=== PATIENT | female | born 1950 | race Caucasian/White ===

== ENCOUNTER 2018-01-16 10:33 | Outpatient (RCR) | payer MEDICARE ==
[~2018-01-16 10:33] MED LIST: Z.0.AMLODIPINE BES2. PO; Z.0.ATENOLOL25 MG PO; Z.0.OMEPRAZOLE40 MG PO
== END 2018-01-18 ==
LOC: PT 10:33
PROVIDERS: ATTEND Orthopaedic Surgery Sports Medicine
DX: M25.512 Pain in left shoulder (principal); M25.612 Stiffness of left shoulder, not elsewhere classified; M62.81 Muscle weakness (generalized)
CPT/HCPCS: 97010 ×3; 97110 ×3; 97139; 97140 ×3; 97162; G8984; G8985

== ENCOUNTER 2018-02-13 10:53 | Outpatient (RCR) | payer MEDICARE | END 2018-02-17 | LOC: PT 10:53 | PROVIDERS: ATTEND Orthopaedic Surgery Sports Medicine | DX: M25.551 Pain in right hip (principal) | CPT/HCPCS: 97010 ×6; 97110 ×8; 97139; 97140 ×5; G8984; G8985 ==

== ENCOUNTER → 2018-03-20 | Outpatient (RCR) | payer MEDICARE | LOC: PT 02-18 10:57 | PROVIDERS: ATTEND Orthopaedic Surgery Sports Medicine | DX: M25.512 Pain in left shoulder (principal); M25.612 Stiffness of left shoulder, not elsewhere classified; M62.81 Muscle weakness (generalized) | CPT/HCPCS: 97010 ×6; 97110 ×9; 97139; 97140 ×3; G8984; G8985 ==

== ENCOUNTER 2018-04-03 10:59 | Outpatient (RCR) | payer MEDICARE | END 2018-04-19 | LOC: PT 10:59 | PROVIDERS: ATTEND Orthopaedic Surgery Sports Medicine | DX: M25.512 Pain in left shoulder (principal); M25.612 Stiffness of left shoulder, not elsewhere classified; M62.81 Muscle weakness (generalized) | CPT/HCPCS: 97010; 97110 ×4; 97140; G8984; G8985 ==

== ENCOUNTER 2018-05-08 09:00 | Outpatient (RCR) | payer MEDICARE | END 2018-05-20 | LOC: PT 09:00 | PROVIDERS: ATTEND Orthopaedic Surgery Sports Medicine | DX: M25.551 Pain in right hip (principal); M25.512 Pain in left shoulder; M25.612 Stiffness of left shoulder, not elsewhere classified; M62.81 Muscle weakness (generalized) | CPT/HCPCS: 97010; 97110 ×3; 97139; G8984; G8985 ==

== ENCOUNTER 2018-11-19 13:00 | Outpatient (RCR) | payer MEDICARE | END 2018-11-20 | LOC: PT 13:00 | PROVIDERS: ATTEND Orthopaedic Surgery Adult Reconstructive Orthopaedic Surgery | DX: Z96.641 Presence of right artificial hip joint (principal); M25.551 Pain in right hip; M62.81 Muscle weakness (generalized); R26.2 Difficulty in walking, not elsewhere classified | CPT/HCPCS: 97110 ×10; 97139; 97140; 97161; G8978; G8979 ==

== ENCOUNTER 2018-12-17 13:00 | Outpatient (RCR) | payer MEDICARE | END 2018-12-18 | LOC: PT 13:00 | PROVIDERS: ATTEND Orthopaedic Surgery Adult Reconstructive Orthopaedic Surgery | DX: Z96.641 Presence of right artificial hip joint (principal); M25.551 Pain in right hip; R26.2 Difficulty in walking, not elsewhere classified; M62.81 Muscle weakness (generalized) ==

== ENCOUNTER 2019-01-15 13:00 | Outpatient (RCR) | payer MEDICARE | END 2019-01-18 | LOC: PT 13:00 | PROVIDERS: ATTEND Orthopaedic Surgery Adult Reconstructive Orthopaedic Surgery | DX: Z96.641 Presence of right artificial hip joint (principal); M25.551 Pain in right hip; M62.81 Muscle weakness (generalized); R26.2 Difficulty in walking, not elsewhere classified | CPT/HCPCS: 97139 ==

== ENCOUNTER 2019-02-05 12:56 | Outpatient (RCR) | payer MEDICARE | END 2019-02-17 | LOC: PT 12:56 | PROVIDERS: ATTEND Orthopaedic Surgery Adult Reconstructive Orthopaedic Surgery | DX: Z96.641 Presence of right artificial hip joint (principal); M25.551 Pain in right hip; R26.2 Difficulty in walking, not elsewhere classified; M62.81 Muscle weakness (generalized) ==

== ENCOUNTER → 2020-04-19 | Outpatient (RCR) | payer MEDICARE | LOC: PT 04-14 09:10 | PROVIDERS: ATTEND Orthopaedic Surgery Sports Medicine | DX: M75.01 Adhesive capsulitis of right shoulder (principal) ==

== ENCOUNTER → 2020-05-20 | Outpatient (RCR) | payer MEDICARE | LOC: PT 04-21 13:02 | PROVIDERS: ATTEND Orthopaedic Surgery Sports Medicine | DX: M75.01 Adhesive capsulitis of right shoulder (principal); M25.511 Pain in right shoulder; M62.81 Muscle weakness (generalized) | CPT/HCPCS: 97139 ==

== ENCOUNTER 2020-05-31 13:00 | Outpatient (RCR) | payer MEDICARE | END 2020-06-20 | LOC: PT 13:00 | PROVIDERS: ATTEND Orthopaedic Surgery Sports Medicine | DX: M75.01 Adhesive capsulitis of right shoulder (principal) | CPT/HCPCS: 97139 ==

== ENCOUNTER 2021-07-01 21:31 | Emergency (ER) | payer MEDICARE ==
[~2021-07-01] VITALS: Ht 162.6 cm; Wt 73.0 kg
== END 2021-07-01 22:41 | disposition home or self-care (01) ==
LOC: ER 21:44
DX: K08.89 Other specified disorders of teeth and supporting structures (principal); K02.9 Dental caries, unspecified; I10 Essential (primary) hypertension; Z95.1 Presence of aortocoronary bypass graft; Z96.641 Presence of right artificial hip joint
CPT/HCPCS: 99282

== ENCOUNTER 2021-08-04 15:21 | Emergency (ER) | payer MEDICARE ==
[~2021-08-04] VITALS: Ht 162.6 cm; Wt 63.5 kg
[2021-08-04] MEDS ORDERED: SODIUM CHLORIDE 0.9% 1000ML 1,000 ML IV STA (15:49)
[2021-08-04 16:02] LABS: BASOPHILS % 0.3 % (0.0-1.0); EOSINOPHILS % 0.1 % (0.0-6.0); HEMATOCRIT 41.9 % (34.2-44.1); HEMOGLOBIN 13.7 g/dL (12.0-16.0); LYMPHOCYTES # (AUTO) 0.8 (1.0-3.2); LYMPHOCYTES % 6.8 % (18.0-39.1); MEAN CORPUSCULAR HGB CONC 32.7 g/dL (31-35); MEAN CORPUSCULAR VOLUME 91.7 fL (81-99); MONOCYTES # (AUTO) 0.5 (0.2-0.8); MONOCYTES % 4.2 % (4.4-11.3); NEUTROPHILS # (AUTO) 9.9 (2.1-6.9); NEUTROPHILS % 88.1 % (38.7-80.0); PLATELET COUNT 260 x10e3/uL (140-360); RED BLOOD COUNT 4.57 x10e6/uL (3.6-5.1); RED CELL DISTRIBUTION WIDTH 13.6 % (11.7-14.4)
[2021-08-04 16:11] LABS: INR 0.99; PROTHROMBIN TIME 13.5 seconds (11.9-14.5)
[2021-08-04 16:12] LABS: PARTIAL THROMBOPLASTIN TIME 26.4 seconds (23.8-35.5)
[2021-08-04 16:19] LABS: ALBUMIN/GLOBULIN RATIO 1.1 (0.8-2.0); ANION GAP 17.6 mmol/L (8-16); CALCIUM 9.3 mg/dL (8.4-10.2); CREATININE, SERUM 1.11 mg/dL (0.57-1.11); POTASSIUM 3.6 mmol/L (3.5-5.1)
[2021-08-04 16:26] LABS: CREATINE KINASE MB 2.1 ng/mL (0-5.0)
[2021-08-04] MEDS ORDERED: MEDROL4 MG PO (16:48)
[2021-08-04] MEDS ORDERED: PEPCID20 MG PO (16:48)
[2021-08-04] MEDS ORDERED: BENADRYL25 M1 PO (16:48)
[2021-08-04] MEDS ORDERED: EPIPEN JR0.15 MG/01 IM (16:49)
[2021-08-04 16:51] VITALS: BP 115/59
== END 2021-08-04 17:16 | disposition home or self-care (01) ==
LOC: EDSEX 15:21 → ER 15:50
DX: R21 Rash and other nonspecific skin eruption (principal); T41.295A Adverse effect of other general anesthetics, initial encounter; I10 Essential (primary) hypertension; R94.31 Abnormal electrocardiogram [ECG] [EKG]; Z95.1 Presence of aortocoronary bypass graft; Z96.641 Presence of right artificial hip joint
CPT/HCPCS: 36415; 71045; 80053; 82550; 82553; 83880; 84484; 85025; 85610; 85730; 93005; 99284; J7030

== ENCOUNTER 2022-01-16 11:24 | Outpatient (RCR) | payer MEDICARE ==
[~2022-01-16 11:24] MED LIST changes: +BENADRYL25 M1 PO; +EPIPEN JR0.15 MG/01 IM; +MEDROL4 MG PO; +PEPCID20 MG PO
== END 2022-01-18 ==
LOC: PT 11:24
PROVIDERS: ATTEND Orthopaedic Surgery Sports Medicine
DX: M75.82 Other shoulder lesions, left shoulder (principal); M25.512 Pain in left shoulder; M25.612 Stiffness of left shoulder, not elsewhere classified

== ENCOUNTER 2022-02-16 13:00 | Outpatient (RCR) | payer MEDICARE | END 2022-02-17 | LOC: PT 13:00 | PROVIDERS: ATTEND Orthopaedic Surgery Sports Medicine | DX: M75.82 Other shoulder lesions, left shoulder (principal); M25.512 Pain in left shoulder; M25.612 Stiffness of left shoulder, not elsewhere classified | CPT/HCPCS: 97139 ==

== ENCOUNTER 2022-03-09 11:00 | Outpatient (RCR) | payer MEDICARE | END 2022-03-20 | LOC: PT 11:00 | PROVIDERS: ATTEND Orthopaedic Surgery Sports Medicine | DX: M75.52 Bursitis of left shoulder (principal); M25.512 Pain in left shoulder; M25.612 Stiffness of left shoulder, not elsewhere classified | CPT/HCPCS: 97139 ==

== ENCOUNTER 2022-05-18 11:00 | Outpatient (RCR) | payer MEDICARE | END 2022-05-20 | LOC: PT 11:00 | PROVIDERS: ATTEND Specialist | DX: S30.0XXA Contusion of lower back and pelvis, initial encounter (principal) ==

== ENCOUNTER 2022-06-14 11:00 | Outpatient (RCR) | payer MEDICARE | END 2022-06-20 | LOC: PT 11:00 | PROVIDERS: ATTEND Specialist | DX: S30.0XXA Contusion of lower back and pelvis, initial encounter (principal) ==

== ENCOUNTER 2022-07-03 11:00 | Outpatient (RCR) | payer MEDICARE | END 2022-07-20 | LOC: PT 11:00 | PROVIDERS: ATTEND Specialist | DX: S30.0XXA Contusion of lower back and pelvis, initial encounter (principal) ==

== ENCOUNTER 2023-01-17 21:30 | Emergency (ER) | payer MEDICARE ==
[~2023-01-17] VITALS: Ht 162.6 cm; Wt 70.3 kg
[2023-01-17] MEDS ORDERED: BACITRACIN ZINC 0.9GM TP ONE (22:58)
[2023-01-17] MEDS ORDERED: BACITRACIN ZINC 15 GM OINT TOP SCH (23:00)
[2023-01-18] MEDS ORDERED: ACETAMINOPHEN 325 MG TAB PO ONE (01:15)
[2023-01-18] MEDS ORDERED: AUGMENTIN 500-1 EACH PO (03:04)
[2023-01-18 03:13] VITALS: BP 151/63
== END 2023-01-18 03:15 | disposition home or self-care (01) ==
LOC: ER 21:35
DX: S00.83XA Contusion of other part of head, initial encounter (principal); S02.2XXA Fracture of nasal bones, initial encounter for closed fracture; W01.0XXA Fall on same level from slipping, tripping and stumbling without subsequent striking against object, initial encounter; R04.0 Epistaxis
CPT/HCPCS: 70450; 70486; 72125; 99284

== ENCOUNTER 2025-05-26 08:32 | Inpatient (IN) | payer MEDICARE ==
[~2025-05-26] VITALS: Ht 162.6 cm; Wt 70.3 kg
[~2025-05-26 08:32] MED LIST changes: +AUGMENTIN 500-1 EACH PO
[2025-05-26 08:45] VITALS: TEMP 97.6
[2025-05-26] MEDS: KETOROLAC TROMETHAMINE 30 MG/ML VIAL IV STA (09:50)
[2025-05-26] MEDS: ONDANSETRON HCL INJ 2MG/ML 2ML 2 MG/ML VIAL IV STA (09:51)
[2025-05-26] MEDS: SODIUM CHLORIDE 0.9% 1000ML 1,000 ML IV ONE (09:51)
[2025-05-26] MEDS ORDERED: IOPAMIDOL 370 MG/ML 100 ML INFUS..BTL INJ ONE (10:15)
[2025-05-26] MEDS: Morphine 4mg INJECTION 4 MG/ML INJ IV ONE (12:42)
[2025-05-26 15:51] VITALS: PULSE 79; RESP 18
[2025-05-26 16:35] VITALS: BP 173/84; PULSE 102; RESP 19; TEMP 98.9; O2SAT 98
[2025-05-26 16:43] VITALS: BP 173/84; PULSE 102; RESP 19; TEMP 98.9; O2SAT 98
[2025-05-26] MEDS ORDERED: LOPRESSOR25 MG PO (17:10)
[2025-05-26] MEDS ORDERED: FAMOTIDINE20 MG PO (17:11)
[2025-05-26] MEDS: ONDANSETRON HCL INJ 2MG/ML 2ML 2 MG/ML VIAL IV PRN (17:24)
[2025-05-26] MEDS: SODIUM CHLORIDE 0.9% 1000ML 1,000 ML IV SCH (17:25)
[2025-05-26] MEDS: Morphine 4mg INJECTION 4 MG/ML INJ IV PRN (17:25)
[2025-05-26 20:00] VITALS: BP 170/70; PULSE 100; RESP 20; TEMP 97.9; O2SAT 97
[2025-05-26] MEDS: HYDRALAZINE HCL 20 MG/ML VIAL IV PRN (20:56)
[2025-05-26 21:00] VITALS: BP 170/70; PULSE 100; RESP 20; TEMP 97.9; O2SAT 97
[2025-05-26] MEDS: KETOROLAC TROMETHAMINE 30 MG/ML VIAL IV PRN (21:05)
[2025-05-26 23:24] LABS: LEUKOCYTE ESTERASE ,URINE NEGATIVE (NEGATIVE); PROTEIN,URINE DIPSTICK 1+ (NEGATIVE)
[2025-05-26 23:25] LABS: URINE UROBILINOGEN 0.2 mg/dL (0.2 - 1)
[2025-05-26 23:48] LABS: EPITHELIAL CELLS,URINE FEW /LPF
[2025-05-27] VITALS (8 sets, daily range): BP systolic 114–141; BP diastolic 51–61; PULSE 74–101; RESP 17–20; TEMP 97.8–98.3; O2SAT 95–97
[2025-05-27 06:23] LABS: BASOPHILS % 0.2 % (0.0-1.0); EOSINOPHILS % 0.1 % (0.0-6.0); LYMPHOCYTES % 5.7 % (18.0-39.1); MONOCYTES % 7.4 % (4.4-11.3); NEUTROPHILS % 86.0 % (38.7-80.0); RED CELL DISTRIBUTION WIDTH 14.0 % (11.7-14.4)
[2025-05-27 07:07] LABS: EST GLOMERULAR FILTRATION RATE 76.0 ML/MIN (>=60)
[2025-05-27 07:46] LABS: T3 UPTAKE 32.53 % (22.5-37.0)
[2025-05-27] MEDS: METOPROLOL TARTRATE 25 MG TAB PO SCH (08:28)
[2025-05-27] MEDS: AMLODIPINE BESYLATE 5 MG TAB PO SCH (08:29)
[2025-05-27] MEDS: Morphine 2mg Syringe 2 MG/ML SYR IV PRN (10:20)
[2025-05-27] MEDS ORDERED: IOPAMIDOL 370 MG/ML 100 ML INFUS..BTL INJ ONE (18:25)
[2025-05-28] VITALS: BP 124/63; PULSE 86; RESP 20; TEMP 98; O2SAT 96
[2025-05-28 04:00] VITALS: BP 135/83; PULSE 82; RESP 20; TEMP 98.6; O2SAT 96
[2025-05-28 06:22] LABS: BASOPHILS % 0.3 % (0.0-1.0); EOSINOPHILS % 1.1 % (0.0-6.0); LYMPHOCYTES % 5.7 % (18.0-39.1); MONOCYTES % 9.9 % (4.4-11.3); NEUTROPHILS % 82.3 % (38.7-80.0); RED CELL DISTRIBUTION WIDTH 14.0 % (11.7-14.4)
[2025-05-28 07:15] LABS: CHOL/HDL RATIO 3.4 (3.0-3.6); EST GLOMERULAR FILTRATION RATE 79.0 ML/MIN (>=60); LDL CHOLESTEROL 57.0 MG/DL (60-130)
[2025-05-28 08:00] VITALS: BP 127/60; PULSE 82; RESP 17; TEMP 98.1; O2SAT 99
[2025-05-28 09:31] LABS: CDIFF AG QUIK CHEK NEGATIVE (NEGATIVE); CDIFF TOX QUIK CHEK NEGATIVE (NEGATIVE); WBC,FECAL (FECAL LACTOFERRIN) POSITIVE (NEGATIVE)
[2025-05-28 12:00] VITALS: BP 109/55; PULSE 61; RESP 16; TEMP 97.9; O2SAT 98
[2025-05-28 16:00] VITALS: BP 129/51; PULSE 76; RESP 16; TEMP 97.8; O2SAT 98
[2025-05-28 20:00] VITALS: BP 113/48; PULSE 70; RESP 18; TEMP 97.7; O2SAT 99
[2025-05-29] VITALS: BP_SYST 113; BP_SYST 126; BP_DIAS 48; BP_DIAS 67; PULSE 70; RESP 18; TEMP 97.7; O2SAT 99
[2025-05-29 04:00] VITALS: BP 132/56; PULSE 68; RESP 18; TEMP 97.9; O2SAT 97
[2025-05-29 08:30] VITALS: BP 132/66; PULSE 64; RESP 18; TEMP 97; O2SAT 96
[2025-05-29 11:53] VITALS: BP 143/62; PULSE 72; RESP 18; TEMP 96; O2SAT 99
[2025-05-29] MEDS: POTASSIUM CHLORIDE 10MEQ EA PO ONE (15:27)
[2025-05-29] MEDS: DICYCLOMINE HCL 20 MG TAB PO ONE (16:02)
[2025-05-29 16:36] VITALS: BP 153/62; PULSE 73; RESP 18; TEMP 97.4; O2SAT 100
[2025-05-29 20:00] VITALS: BP 146/68; PULSE 69; RESP 18; TEMP 98.1; O2SAT 100
[2025-05-30] VITALS: BP 145/54; PULSE 68; RESP 18; TEMP 98.3; O2SAT 96
[2025-05-30 04:00] VITALS: BP 141/60; PULSE 71; RESP 18; TEMP 97.6; O2SAT 98
[2025-05-30 08:00] VITALS: BP 173/66; PULSE 76; RESP 18; TEMP 98.1
[2025-05-30] MEDS: DICYCLOMINE HCL 10 MG CAP PO SCH (09:22)
[2025-05-30 09:40] LABS: BASOPHILS % 0.5 % (0.0-1.0); EOSINOPHILS % 3.8 % (0.0-6.0); LYMPHOCYTES % 14.4 % (18.0-39.1); MONOCYTES % 10.0 % (4.4-11.3); NEUTROPHILS % 70.9 % (38.7-80.0); RED CELL DISTRIBUTION WIDTH 13.6 % (11.7-14.4)
[2025-05-30 10:17] LABS: EST GLOMERULAR FILTRATION RATE 91.0 ML/MIN (>=60)
[2025-05-30] MEDS: POTASSIUM CHLORIDE 20MEQ/100ML 100 ML IV ONE (13:06)
[2025-05-30] MEDS: POTASSIUM CHLORIDE 20 MEQ TAB CR PO STA ×2 (13:06→21:03)
[2025-05-30 16:36] VITALS: PULSE 59; RESP 18; TEMP 97.9
[2025-05-30 20:00] VITALS: BP 146/64; PULSE 79; RESP 18; TEMP 97.5; O2SAT 97
[2025-05-30 21:00] VITALS: BP 146/64; PULSE 79; RESP 18; TEMP 97.5; O2SAT 97
[2025-05-31 04:00] VITALS: BP 154/67; PULSE 72; RESP 18; TEMP 97.9; O2SAT 97
[2025-05-31 07:06] LABS: EST GLOMERULAR FILTRATION RATE 90.0 ML/MIN (>=60)
[2025-05-31 07:40] VITALS: BP 150/77; PULSE 76; RESP 18; TEMP 97.6; O2SAT 99
[2025-05-31 12:10] VITALS: BP 167/70; PULSE 77; RESP 20; TEMP 97; O2SAT 97
[2025-05-31 16:02] VITALS: BP 160/54; PULSE 78; RESP 19; TEMP 98.4; O2SAT 97
[2025-05-31 17:06] VITALS: BP 160/54; PULSE 78
[2025-05-31] MEDS ORDERED: AUGMENTIN 500-1 EACH PO (17:09)
== END 2025-05-31 18:05 | disposition home or self-care (01) | DRG 394 ==
LOC: FSED 09:09 → ERHOLD 13:59 → MED/SURG3 16:41
PROVIDERS: ADMIT Internal Medicine; ATTEND Internal Medicine
DX: K55.9 Vascular disorder of intestine, unspecified (principal); K57.32 Diverticulitis of large intestine without perforation or abscess without bleeding; N39.0 Urinary tract infection, site not specified; I10 Essential (primary) hypertension; K21.9 Gastro-esophageal reflux disease without esophagitis; E87.6 Hypokalemia; Z88.8 Allergy status to other drugs, medicaments and biological substances
CPT/HCPCS: 36415; 74174; 74177; 80048; 80053; 80061; 81001; 83036; 83630; 83735; 83993; 84436; 84443; 84479; 85025; 87045; 87177; 87324; 87449; 99284; J0360; J1885; J2270; J2405; J2470; J2543; J3480; J7030; Q9967

== ENCOUNTER → 2025-07-15 | Outpatient (REF) | payer MEDICARE ==
[~2025-07-15] MED LIST changes: +ALTOPREV40 MG PO; +BENICAR20 MG PO; +CITRACAL-D3 MA1 EACH PO; +FAMOTIDINE20 MG PO; +HAIR SKIN NAILS PO; +LOPRESSOR25 MG PO; +MULTI-VITAMIN1 EACH PO; +OXYBUTYNIN CHLOR5 M1 PO; +PRESERVISION A1 EAC3 PO
[2025-07-15 12:50] LABS: BASOPHILS % 0.5 % (0.0-1.0); EOSINOPHILS % 3.4 % (0.0-6.0); LYMPHOCYTES % 24.6 % (18.0-39.1); MONOCYTES % 12.3 % (4.4-11.3); NEUTROPHILS % 58.8 % (38.7-80.0); RED CELL DISTRIBUTION WIDTH 14.6 % (11.7-14.4)
== END ==
LOC: RAD 08:00 → EDSTATUS 07-23 09:00
PROVIDERS: ATTEND Internal Medicine Gastroenterology
DX: Z01.810 Encounter for preprocedural cardiovascular examination (principal); Z01.812 Encounter for preprocedural laboratory examination; Z86.0100 Personal history of colon polyps, unspecified; I10 Essential (primary) hypertension; E78.5 Hyperlipidemia, unspecified; I42.2 Other hypertrophic cardiomyopathy; M81.0 Age-related osteoporosis without current pathological fracture
CPT/HCPCS: 36415; 85025; 93005